=== PATIENT | male | born 1940 | race Caucasian/White ===

== ENCOUNTER 2019-02-21 10:43 | Emergency (ER) | payer BC, MEDICARE ==
--- OUTSIDE RECORDS SUMMARY | 2019-02-21 10:52 | XMS REPORT | Summary of Care ---
:1940 Author Organization [facility] Address [address] [address] Care Team Providers Name Role Phone Esteban Mayers Primary Care Provider Reason for Visit Reason Comments Check Up extended visit, last labs 09/21/17, PSA 10/2018, TRANG with Dr Garcia in October 2018, last colonoscopy 09/11/14 due 09/2019 (does Pt have to have another one?) Hypertension f/u BP 122/68 Encounter Details Date Type Department Care Team Description 01/16/2019 Office Visit [place] [facility] Esteban Mayers MD Essential hypertension (Primary Dx); Medicine [facility] 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 daily vitamin Oral Tab Take 1 Tab by 0 Active mouth DAILY. metroNIDAZOLE 1 g by Topical 45 g 5 03/09/2018 Active (METROCREAM) 0.75 % route TWICE Apply externally Cream DAILY. To face for rosacea ramipril (ALTACE) 5 MG Take 1 Cap by 90 Cap 3 04/16/2018 Active Oral Cap mouth DAILY. atorvastatin (LIPITOR) Take 0.5 Tabs by 45 Tab 3 04/16/2018 Active 40 MG Oral Tab mouth DAILY. documented as of this encounter (statuses as of 01/17/2019) Active Problems Problem Noted Date Adenomatous polyp of colon 01/17/2019 Benign prostatic hyperplasia without lower urinary tract symptoms 01/17/2019 Coronary artery disease involving ekuk coronary artery of ekuk heart 11/11 without angina pectoris Overview: s/p PTCA of RCA in late HTN (hypertension) documented as of this encounter (statuses as of 01/17/2019) Resolved Problems Problem Noted Date Resolved Date Hyperchloremia 05/13/2013 CAD (coronary artery disease) 11/11/2014 Overview: s/p PTCA of RCA in late documented as of this encounter (statuses as of 01/17/2019) Immunizations Name Administration Dates Next Due Influenza Vaccine 65 Yrs + 01/16/2019 Influenza Vaccine High Dose 02/05/2018, 01/20/2017, 03/04/2016, 02/01/2015 PNEUMOCOCCAL POLYSACCHARIDE VACCINE 05/10/2012 Pneumococcal Conjugate(13 Valent) 05/14/2014 TDAP Vaccine 05/10/2012 ZOSTER (ZOSTAVAX) VACCINE 11/12/2012 documented as of this encounter Social History Tobacco Use Types Packs/Day Years Used Date Former Smoker Cigarettes, Cigars 15 Quit: 09/11/2009 Smokeless Tobacco: Never Used Comments: smokes "few puffs" on cigars Alcohol Use Drinks/Week oz/Week Comments Yes 0 Standard drinks or equivalent 0.0 occ rum Sex Assigned at Date Recorded Not on file Job Start Date Occupation Industry Not on file Not on file Not on file Travel History Travel Start Travel End No recent travel history available. documented as of this encounter Last Filed Vital Signs Vital Sign Reading Time Taken Comments Blood Pressure 122/68 01/16/2019 11:04 AM EDT Pulse 54 01/16/2019 11:04 AM EDT Temperature - - Respiratory Rate - - Oxygen Saturation - - Inhaled Oxygen Concentration - - Weight 76.2 kg (168 lb) 01/16/2019 11:04 AM EDT Height 170.2 cm (5' 7") 01/16/2019 11:04 AM EDT Body Mass Index 26.31 01/16/2019 11:04 AM EDT documented in this encounter Patient Instructions Patient InstructionsEsteban Mayers MD - 01/16/2019 11:00 AM EDTContinue same medicines Lab today, as listed. I'll notify you of the results with a letter. Call if back pain does not continue to improve If all ok, follow up 1 year documented in this encounter Progress Notes Esteban Mayers MD - 01/16/2019 11:00 AM EDT PATIENT: Raghavendra Pennington : 1940 DATE OF SERVICE: 01/16/2019 CHIEF COMPLAINT: Chief Complaint Patient presents with Check Up extended visit, last labs 09/21/17, PSA 10/2018, TRANG with Dr Garcia in October 2018 , last colonoscopy 09/11/14 due 09/2019 (does Pt have to have another one?) Hypertension f/u BP 122/68 Subjective HISTORY OF PRESENT ILLNESS: Raghavendra Pnenington is a 78-y.o. male. HPI Overall feeling well. No exertional chest pain or dyspnea. Blood pressure controlled. Follows with Dr. Garcia and had normal digital rectal exam and PSA. Due for another colonoscopy next year and I told him he should proceed since he had polyps previously. Told him that I expect him to have at least a 10-year life expectancy and that this colonoscopy would be valuable, but would also be his last Past Medical History: Diagnosis Date CAD (coronary artery disease) HTN (hypertension) Hyperchloremia Family History Problem Relation Age of Onset Aneurysm Mother COPD Father smoker Diabetes Maternal Grandmother Diabetes Paternal Grandmother Current Outpatient Medications Medication Sig aspirin (ECOTRIN) 81 MG Oral Tab EC Take 1 Tab by mouth DAILY. atorvastatin (LIPITOR) 40 MG Oral Tab Take 0.5 Tabs by mouth DAILY. daily vitamin Oral Tab Take 1 Tab by mouth DAILY. metroNIDAZOLE (METROCREAM) 0.75 % Apply externally Cream 1 g by Topical route TWICE DAILY. Toface for rosacea ramipril (ALTACE) 5 MG Oral Cap Take 1 Cap by mouth DAILY. No current facility-administered medications for this visit. No Known Allergies Social History Socioeconomic History Marital status: Single Spouse name: Not on file Number of children: Not on file Years of education: Not on file Highest education level: Not on file Occupational History Not on file Social Needs Financial resource strain: Not on file Food insecurity: Worry: Not on file Inability: Not on file Transportation needs: Medical: Not on file Non-medical: Not on file Tobacco Use Smoking status: Former Smoker Years: 15.00 Types: Cigarettes, Cigars Last attempt to quit: 09/11/2009 Years since quittin.3 Smokeless tobacco: Never Used Tobacco comment: smokes "few puffs" on cigars Substance and Sexual Activity Alcohol use: Yes Alcohol/week: 0.0 standard drinks Comment: occ rum Drug use: No Sexual activity: Yes Partners: Female Lifestyle Physical activity: Days per week: Not on file Minutes per session: Not on file Stress: Not on file Relationships Social connections: Talks on phone: Not on file Gets together: Not on file Attends muslim service: Not on file Active member of club or organization: Not on file Attends meetings of clubs or organizations: Not on file Relationship status: Not on file Intimate partner violence: Fear of current or ex partner: Not on file Emotionally abused: Not on file Physically abused: Not on file Forced sexual activity: Not on file Other Topics Concern Not on file Social History Narrative Not on file Over the last 2 weeks, have you been feeling down, depressed, anxious, or hopeless?: 0 Over the past 2 weeks, have you felt little interest or pleasure in doing things ?: 0 REVIEW OF SYSTEMS: Review of Systems Constitutional: Negative for malaise/fatigue and weight loss. HENT: Negative for congestion. Eyes: Negative for blurred vision. Respiratory: Negative for shortness of breath. Cardiovascular: Negative for chest pain. Gastrointestinal: Negative for abdominal pain. Genitourinary: Negative for frequency. Musculoskeletal: Positive for back pain. Skin: Negative for itching and rash. Neurological: Negative for dizziness, seizures and loss of consciousness. Psychiatric/Behavioral: Negative. Objective PHYSICAL EXAM: VITALS: BP 122/68 | Pulse 54 | Ht 5' 7" (1.702 m) | Wt 168 lb (76.2 kg) | BMI 26.31 kg/m Body mass index is 26.31 kg/m. Physical Exam Physical exam reveals a man in no acute distress. Vitals as above. HEENT: Normocephalic, atraumatic. ALEJO, EOMI. Mouth and ears unremarkable. Neck: No palpable lymphadenopathy in the submandibular, submental, anterior cervical, posterior cervical, or occipital chains, nor in the supraclavicular spaces. No JVD, thyromegaly. LUNGS: clear. HEART: Regular rate and rhythm. No murmurs, rubs, or gallops. ABDOMEN: positive bowel sounds, soft, nontender, no hepatosplenomegaly, masses or bruits. EXTREMITIES: no cyanosis, clubbing, or edema. Distal radial, dorsalis pedis, and popliteal pulses are intact. SKIN: no suspicious rashes or lesions. MUSCULOSKELETAL: no acutely inflamed joints. NEURO: Alert and oriented, cranial nerves II through XII grossly intact. No focal motor, sensory, or cerebellar findings. Gait and stance within normal limits. ASSESSMENT / IMPRESSION: ICD-9-CM ICD-10-CM 1. Essential hypertensioncontrolled 401.9 I10 COMPREHENSIVE METABOLIC PANEL LIPID PROFILE THYROID STIMULATING HORMONE 2. 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 Benign prostatic hyperplasia without lower urinary tract symptoms following with Dr. Garcia 600.00 N40.0 4. Adenomatous polyp of colon, unspecified part of colonrectal, 1 other polyp was hyperplastic, found on colonoscopy 2014 211.3 D12.6 Patient Instructions Continue same medicines Lab today, as listed. I'll notify you of the results with a letter. Call if back pain does not continue to improve If all ok, follow up 1 year Author: Esteban Mayers MD 01/16/2019 11:39 documented in this encounter Plan of Treatment Date Type Specialty Care Team Description 02/12/2020 Office Visit Internal Medicine Esteban Mayers MD [address] [place] [address] [phone] Health Maintenance Due Date Last Done Comments ZOSTER IMMUNIZATION SERIES 01/07/2013 11/12/2012 (2 of 3) MEDICARE ANNUAL WELLNESS 06/14/2017 06/14/2016 (Postponed), VISIT 11/11/2014 COLONOSCOPY SCREENING 09/12/2019 09/11/2014 DEPRESSION SCREENING 01/17/2020 01/16/2019 FALL RISK ASSESSMENT 01/17/2020 01/16/2019, 01/16/2019 PNEUMOCOCCAL 65+YRS Completed 05/14/2014, 05/10/2012 INFLUENZA VACCINE Completed 01/16/2019, 02/05/2018, 01/20/2017, Additional history exists HPV IMMUNIZATION SERIES Aged Out No longer eligible based on patient's age to complete this topic MENINGOCOCCAL VACCINE IMM Aged Out No longer eligible based on patient's age to complete this topic documented as of this encounter Goals Goal Patient Goal Associated Recent Patient-Stated? Author Type Problems Progress Blood Pressure Blood Pressure 122/68 Mariana Mayers, < 140/90 (01/16/2019 MD Esteban 11:04 AM EDT) Note: This is an individualized treatment (blood pressure) goal for Raghavendra Pennington: Displayed above (on the left) is your goal for blood pressure control. Your most recent blood pressure is also shown above, on the right. You should try to achieve blood pressures that are lower than your goal listed above (on the left). Take all prescribed medications as directed Self-management Esteban Richardson MD Note: This is an individualized self-management goal for Raghavendra Pennington: Please take all prescribed medications as directed. 1. Do not skip doses. If you cannot afford your medications, talk with your doctor. 2. Use a pill reminder system such as a pill box if needed. Your pharmacist can help you with this. 3. Contact your Pharmacy 5 days before your medication runs out. If you cannot take your medications for any reasons, talk with your doctor. 4. Please bring all of your medication bottles and inhalers (or a list of all your medications/inhalers) with you to every visit. Potential barriers to meeting all of your care plan goals will continue to be addressed on an ongoing basis. documented as of this encounter Procedures Procedure Name Priority Date/Time Associated Diagnosis Comments CBC WITH DIFFERENTIAL Routine 01/16/2019 12:09 Coronary artery Results for this PM EDT disease involving procedure are in ekuk coronary the results artery of ekuk section. heart without angina pectoris THYROID STIMULATING Routine 01/16/2019 12:09 Essential Results for this HORMONE PM EDT hypertension procedure are in the results section. LIPID PROFILE Routine 01/16/2019 12:09 Essential Results for this PM EDT hypertension procedure are in the results section. COMPREHENSIVE Routine 01/16/2019 12:09 Essential Results for this METABOLIC PANEL PM EDT hypertension procedure are in the results section. documented in this encounter Results THYROID STIMULATING HORMONE (01/16/2019 12:09 PM EDT) TSH 2.22 0.47 - 4.68 uIu/ml [facility] Specimen Blood - Blood specimen (specimen) Performing Organization Address [facility] [place] Phone [place] [facility] [address] [place] [address] [phone] LIPID PROFILE (01/16/2019 12:09 PM EDT) Cholesterol 155 <200 mg/dl [facility] HDL Cholesterol 42 >40 mg/dl [facility] Triglycerides 178 (H) <150 mg/dl [facility] LDL Cholesterol 77 <100 MG/DL [facility] Cholesterol / HDL Ratio 3.7 RATIO [facility] LDL / HDL Ratio 1.8 [facility] Non-HDL Cholesterol 113 0 - 130 MG/DL [facility] Specimen Blood - Blood specimen (specimen) Performing Organization Address [facility] [place] Phone Number [facility] [address] [place] [address] [phone] COMPREHENSIVE METABOLIC PANEL (01/16/2019 12:09 PM EDT) Sodium 139 134 - 145 mmol/L [facility] Potassium 4.5 3.5 - 5.1 mmol/L [facility] Chloride 106 98 - 107 mmol/L [facility] CO2 23 22 - 30 mmol/L [facility] Calcium 9.3 8.3 - 10.1 mg/dl [facility] Albumin 3.9 3.5 - 5.0 g/dl [facility] BUN 23 (H) 9 - 20 mg/dl [facility] Creatinine 1.2 0.8 - 1.5 mg/dl [facility] Glucose 98 70 - 99 mg/dl [facility] Total Protein 7.0 6.3 - 8.2 g/dl [facility] Total Bilirubin 0.5 0.0 - 1.1 MG/DL [facility] AST 32 17 - 59 U/L [facility] ALT 35 21 - 72 U/L [facility] Alkaline 59 40 - 150 U/L [facility] eGFR 59 See Interpretation [facility] Comment: Below ml/min/1.73ml GROUP Estimated GFR Interpretation: LABORATORY Above 60ml/min/1.73m2 = Normal Renal Function 30-59 ml/min/1.73m2 = Stage 3 Chronic Kidney Disease 15-29 ml/min/1.73m2 = Stage 4 Chronic Kidney Disease Less than 15 ml/min/1.73m2 = Stage 5 Chronic Kidney Disease The GFR value is calculated using the Modification of Diet in Renal Disease ( MDRD) Study Equation which can be found at: https://www.kidney.org/content/grfz-jlnos-upmuckmb BUN/Creatinine 19 6 - 22 RATIO [facility] Anion Gap 10 3 - 11 mmol/L [facility] A/G Ratio 1.3 0.8 - 2.0 ratio [facility] Specimen Blood - Blood specimen (specimen) Performing Organization Address [facility]/State[facility] Phone Number [facility] [address] [place] [address] [phone] CBC WITH DIFFERENTIAL (01/16/2019 12:09 PM EDT) WBC Count 7.03 4.23 - 9.07 K/uL [facility] RBC Count 5.08 4.30 - 5.89 M/UL [facility] Hemoglobin 14.7 13.7 - 17.5 g/dL [facility] Hematocrit 45.3 40.1 - 51.0 % [facility] MCV 89.2 79.0 - 92.2 FL [facility] MCH 28.9 25.7 - 32.2 PG [facility] MCHC 32.5 32.3 - 36.5 g/dL [facility] Platelet Count 178 163 - 337 K/uL [facility] MPV 10.9 9.4 - 12.4 FL [facility] RDW 13.1 11.6 - 14.4 % [facility] Neutrophil % 58.1 34.0 - 67.9 % [facility] Lymphocyte % 27.7 21.8 - 53.1 % [facility] Monocyte % 11.1 5.3 - 12.2 % [facility] Eosinophil % 2.1 0.8 - 7.0 % [facility] Basophil % 0.7 0.2 - 1.2 % [facility] nRBC % 0.0 0.0 - 0.2 % [facility] Neutrophil # 4.08 1.78 - 5.38 K/UL [facility] Lymphocyte # 1.95 1.32 - 3.57 K/UL [facility] Monocyte # 0.78 0.30 - 0.82 K/UL [facility] Eosinophil # 0.15 0.04 - 0.54 K/UL [facility] Basophil # 0.05 0.01 - 0.08 K/UL [facility] Immature Gran % 0.3 0.0 - 0.4 % [facility] Immature Gran # 0.02 0.00 - 0.03 K/uL [facility] NRBC # 0.00 0.00 - 0.12 K/uL [facility] Specimen Blood - Blood specimen (specimen) Performing Organization Address City/State/Zipcode Phone Number [facility] [address] [place] [address] [phone] documented in this encounter Visit Diagnoses Diagnosis Essential hypertension - Primary Unspecified essential hypertension 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
[2019-02-21 10:56] VITALS: BP 125/86
--- NOTE | 2019-02-21 11:06 | UC ---
Bite Injury/Animal HPI - HPI Summary HPI Summary: CHIEF COMPLAINT and HPI: This is a 78 year old with a tick bite on his left forearm. He found the tick when taking a shower. He is unsure how long the tick had been present. VITAL SIGNS & SaO2 REVIEWED. Within normal limits unless noted here. NURSES NOTE REVIEWED. - History of Current Complaint Chief Complaint: UCSkin Stated Complaint: TICK BITE Time Seen by Provider: 02/21/19 11:02 Pain Intensity: 1 - Allergies/Home Medications Allergies/Adverse Reactions: Allergies Allergy/AdvReac Type Severity Reaction Status Date / Time No Known Allergies Allergy Verified 02/21/19 10:57 PMH/Surg Hx/FS Hx/Imm Hx - Additional Past Medical History Additional PMH: PAST MEDICAL HISTORY- CHRONIC and RECURRENT HEALTH PROBLEM LIST REVIEWED. Information relevant to present complaint: non-contributory VISIT HISTORY REVIEWED: MEDICATIONS & ALLERGIES REVIEWED. HYPERTENSION STATUS: on verapamil FAMILY HISTORY: negative. 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 Previously Healthy: Yes Cardiovascular History: Hypertension, Other - s/p balloon angioplasty - Surgical History Surgical History: Yes Surgery Procedure, Year, and Place: Balloon Angioplasty 2008, appendectomy 2009 - ruptured - Social History Alcohol Use: Weekly Substance Use Type: None Smoking Status (MU): Former Smoker Type: Cigarettes Length of Time of Smoking/Using Tobacco: > 15 years off and on Have You Smoked in the Last Year: No When Did the Patient Quit Smoking/Using Tobacco: 6 years ago - Immunization History Most Recent Tetanus Shot: 2013 Review of Systems All Other Systems Reviewed And Are Negative: Yes Constitutional: Positive: Negative Respiratory: Positive: Negative Cardiovascular: Positive: Negative Gastrointestinal: Positive: Negative Is Patient Immunocompromised?: No Physical Exam - Summary Physical Exam Summary: Appearance: The patient is well-appearing, is in no pain or distress, and is well-nourished. Eyes: Conjunctiva are clear. Pupils are equal and reactive to light and accommodation. Extra ocular muscle movement is intact. ENT: The hearing is grossly normal, the pharynx is normal, and the TMs are normal. There is no muffled or hoarse voice. No stridor. Neck: The neck is supple and there is no lymphadenopathy. Respiratory: The chest is non-tender to palpation and without crepitus. The lungs are clear, there are normal breath sounds, and there is no respiratory distress. No wheezes, rales or rhonchi. Cardiovascular: Heart sounds reveal a regular rate and rhythm. There are no clicks, rubs or murmurs. There are no carotid bruits or thrills. Circulation is grossly intact. Abdomen: The abdomen is soft and nontender. There is no organomegaly. Bowel sounds are present and within normal limits. No point tenderness at McBurneys point. No CVA tenderness. Musculoskeletal: Strength is intact. The patient moves all extremities. Neurological: The patient is alert. Motor and sensory are examination grossly intact. Speech is normal. Psychological: The patient displays age appropriate behavior, and is conversant. GCS=15. Skin: Negative for rashes. One cm bite site left forearm. 2.5 cm reactive erythema. No erythema migrans. No cellultis or lymphangitis. Triage Information Reviewed: Yes Vital Signs: Initial Vital Signs Temp 98 F 02/21/19 10:55 Pulse 66 02/21/19 10:55 Resp 16 02/21/19 10:55 BP 125/86 02/21/19 10:55 Pulse Ox 100 02/21/19 10:55 Bite Injury Course/Dx - Course Course Of Treatment: The patient presents with a tick bite. The tick apparently had been present for more than 36 hours. The patient has no history of Lyme disease. I explained to the patient the need to wait approximately 3 weeks before Lyme testing would be accurate. I explained to the patient the need to watch for any rash or signs consistent with skin infection. The patient will clean the bite site morning and night with warm water and soap and place antibiotic ointment on it. I have given the patient 200 mg of doxycycline for Lyme prophylaxix. Patient knows to follow up immediately for new symptoms or fever. I have given the patient information about Lyme disease. - Differential Dx/Diagnosis Differential Diagnosis/HQI/PQRI: Cellulitis Provider Diagnosis: Tick bite Discharge ED - Sign-Out/Discharge Documenting (check all that apply): Patient Departure All imaging exams completed and their final reports reviewed: No Studies - Discharge Plan Condition: Stable Disposition: HOME Patient Education Materials: Lyme Disease (ED), Tick Bite (ED) Referrals: Esteban Mayers MD [Primary Care Provider] - Additional Instructions: WE DISCUSSED: PLEASE SEEK CARE AT THE EMERGENCY DEPARTMENT IF SYMPTOMS WORSEN OR IF NEW SYMPTOMS DEVELOP. FOLLOW UP WITH YOUR PRIMARY CARE PHYSICIAN IF CONDITION CONTINUES BEYOND 3 DAYS WITHOUT IMPROVEMENT. YOUR DIAGNOSIS IS: tick bite; you have been given 200mg of the antibiotic doxycycline YOUR PRESCRIPTION RECOMMENDATION IS: none. OTHER INSTRUCTIONS: warm soaks to bite site; clean morning and night; use antibiotic cream or ointment and a bandaid. WATCH FOR ANY INCREASING REDNESS OR SPREADING RASH. Hypertension Discharge Instructions: Your blood pressure reading today was 125/86. It should be about 120/80, so recheck intermittently to check the number. FOR PAIN AND/OR SLEEP: For pain: Ibuprofen (Motrin and other brand names) 400-600mg PLUS acetaminophen (Tylenol and other brand names) 500mg - 1000mg every 8 hours. - Billing Disposition and Condition Condition: STABLE Disposition: Home
[2019-02-21] MEDS ORDERED: DOXYcycline CAP(*) 100 MG PO ONE (11:14)
== END 2019-02-21 11:29 | disposition home or self-care (01) ==
LOC: UCEAST 10:43
DX: S50.862A Insect bite (nonvenomous) of left forearm, initial encounter (principal); Z87.891 Personal history of nicotine dependence; W57.XXXA Bitten or stung by nonvenomous insect and other nonvenomous arthropods, initial encounter; Y92.9 Unspecified place or not applicable
CPT/HCPCS: 99212; A9270-GY; G0463